=== PATIENT | male | born 2000 | race Caucasian/White ===

== ENCOUNTER 2021-06-07 21:49 | Emergency (ER) | payer BC, OTHER ==
[~2021-06-07] VITALS: Ht 170.2 cm; Wt 74.8 kg
[2021-06-07 22:07] VITALS: BP_SYST 131
[2021-06-07] MEDS ORDERED: ONDANSETRON HCL 4 MG/2 ML VIAL IVP ONE (22:30)
[2021-06-07] MEDS ORDERED: NACL 0.9% 1,000 ML IV ONE (22:30)
[2021-06-07] MEDS ORDERED: FAMOTIDINE PF 20 MG/2 ML VIAL IVP ONE (22:30)
[2021-06-07] MEDS ORDERED: MORPHINE 2 MG/ML INJ. SYRINGE IVP ONE (22:30)
[2021-06-07 23:01] LABS: BASOPHILS # (AUTO) 0.1 K/uL (0.0-0.2); BASOPHILS % (AUTO) 0.5 % (0.0-2.0); EOSINOPHILS # (AUTO) 0.1 K/uL (0.0-0.4); EOSINOPHILS % (AUTO) 0.5 % (0.0-4.0); HEMATOCRIT 46.1 % (36-54); HEMOGLOBIN 15.8 g/dL (14.0-18.0); LYMPHOCYTES % (AUTO) 18.7 % (20.5-51.5); MEAN CORPUSCULAR HEMOGLOBIN 29 pg (27-31); MEAN CORPUSCULAR HGB CONC 34 % (32-36); MEAN CORPUSCULAR VOLUME 85 fL (79.0-98.0); MONOCYTES # (AUTO) 0.7 K/uL (0.0-1.0); NEUTROPHILS # (AUTO) 7.8 K/uL (1.8-7.7); NEUTROPHILS % (AUTO) 73.3 % (40.0-70.0); PLATELET COUNT (AUTO) 299 K/uL (130-430); RED BLOOD CELL COUNT(AUTO) 5.46 MIL/uL (4.2-6.2); WHITE BLOOD COUNT (AUTO) 10.7 K/uL (4.5-11.0)
[2021-06-07 23:04] LABS: CREATININE 0.84 mg/dL (0.55-1.30); POTASSIUM 3.5 mmol/L (3.5-5.1)
[2021-06-07 23:10] LABS: ALBUMIN 3.7 g/dL (3.4-4.8); TOTAL BILIRUBIN 0.4 mg/dL (0.0-1.0)
[2021-06-08] MEDS ORDERED: FAMO-132 PO (03:49)
[2021-06-08 03:57] VITALS: BP_SYST 128
== END 2021-06-08 04:00 | disposition home or self-care (01) ==
LOC: SED 21:49
DX: R10.33 Periumbilical pain (principal); R19.7 Diarrhea, unspecified; Z79.899 Other long term (current) drug therapy
CPT/HCPCS: 36415; 74177; 76376; 80053; 83690; 85025; 96361; 96374; 96375; 99285; J2405; J3490; J7030; Q9967; J2270

== ENCOUNTER 2022-03-05 14:13 | Emergency (ER) | payer BC, MEDICAID ==
[~2022-03-05 14:13] MED LIST: FAMO-132 PO
--- NOTE | 2022-03-05 15:12 | NUR ---
PT NOT IN LOBBY OR OUTSIDE IN FRONT OF HOSPITAL
--- NOTE | 2022-03-05 16:03 | NUR ---
NO ANSWER IN LOBBY.
== END 2022-03-05 16:03 | disposition left against medical advice (07) ==
LOC: SED 14:13
DX: S49.92XA Unspecified injury of left shoulder and upper arm, initial encounter (principal); Z53.21 Procedure and treatment not carried out due to patient leaving prior to being seen by health care provider; W19.XXXA Unspecified fall, initial encounter; Y93.89 Activity, other specified; Y92.89 Other specified places as the place of occurrence of the external cause; Y99.8 Other external cause status

== ENCOUNTER 2022-11-04 16:16 | Emergency (ER) | payer MEDICAID ==
[~2022-11-04] VITALS: Ht 170.2 cm; Wt 77.1 kg
[2022-11-04 16:25] VITALS: BP_SYST 134
[2022-11-04] MEDS ORDERED: IBUPROFEN 800 MG TABLET PO ONE (16:45)
[2022-11-04] MEDS ORDERED: IBUP-1971 PO (17:12)
[2022-11-04 17:58] VITALS: BP_SYST 134
== END 2022-11-04 17:57 | disposition home or self-care (01) ==
LOC: SED 16:16
DX: S09.90XA Unspecified injury of head, initial encounter (principal); H57.12 Ocular pain, left eye; Z79.899 Other long term (current) drug therapy; W21.02XA Struck by soccer ball, initial encounter; Y93.66 Activity, soccer; Y92.89 Other specified places as the place of occurrence of the external cause; Y99.8 Other external cause status
CPT/HCPCS: 99282